=== PATIENT | female | born 1995 | race Caucasian/White ===

== ENCOUNTER 2017-10-02 00:24 | Emergency (ER) | payer SELFPAY ==
[2017-10-02 00:31] VITALS: BP 111/72; BMI 22.4
[2017-10-02 01:03] LABS: BILIRUBIN,URINE NEGATIVE (NEGATIVE); BLOOD/HEMOGLOBIN,URINE NEGATIVE (NEGATIVE); GLUCOSE, URINE NEGATIVE (NEGATIVE); KETONES,URINE NEGATIVE (NEGATIVE); LEUKOCYTE ESTERASE ,URINE 1+ (NEGATIVE); NITRITES,URINE NEGATIVE (NEGATIVE); PROTEIN,URINE 1+ (NEGATIVE); UROBILINOGEN,URINE 1+ (NORMAL)
--- NOTE | 2017-10-02 01:08 | DR.GENAD ---
HPI - PCP Primary Care Physician: NFD - Complaint/Symptoms Chief Complaint Doctors Comments: Patient presents with complaint of back pain x 3 days; denies any heavy lifting, denies dysuria or fever. LMP 08/09/17. Negative past medical history. She denies vaginal bleeding or cramping Chief Complaint:: PT STATES" I JUST FOUND OUT I WAS AND I'M HAVING ABD AND BACK PAIN" DENIES ANY BLEEDING - Source History Provided: Patient - Mode of Arrival Mode of Arrival: Ambulatory - Timing Onset of Chief Complaint: 10/01/17 PMH - PMH Past Medical History: No Past Surgical History: No - Family History History of Family Medical Conditions: Yes Family Medical History: Diabetes Mellitus, Hypertension Family Medical History Comment: SEIZURES - Social History Does patient currently use any type of tobacco product: No Have you used tobacco products in the last 12 months: No Type of Tobacco Use: None Does any household member use tobacco: No Alcohol Use: Rarely Do you use any recreational Drugs:: No Lives With: Family Lives Where: Home - infectious screening In the last 2 months have you had wt loss of >10#?: NO Have you had fever, night sweats or hemotysis?: No Have you traveled outside the country in the last 6 months?: No Isolation: Standard ROS - Review of Systems Eyes: No Symptoms Reported ENTM: No Symptoms Reported Respiratoy: No Symptoms Reported Cardiovascular: No Symptoms Reported Gastrointestinal/Abdominal: No Symptoms Reported Genitourinary: No Symptoms Reported Neurological: No Symptoms Reported Musculoskeletal: No Symptoms Reported Integumentary: No Symptoms Reported Hematologic/Lymphatic: No Symptoms Reported Endocrine: No Symptoms Reported Psychiatric: No Symptoms Reported All Other Systems: Reviewed and Negative PE - Vital Signs Vitals: Temperature 98 F Pulse Rate 88 Respiratory Rate 18 Blood Pressure 111/72 O2 Sat by Pulse Oximetry 100 - General General Appearance: Alert, In No Apparent Distress - Head Head Exam: Normal Inspection, Atraumatic - Eyes Eye exam: Normal Appearance, PERRL, EOMI - ENT ENT Exam: Normal Exam External Ear Exam: Normal External Inspection TM/Canal Exam: Bilateral Normal Nose Exam: Normal Nose Exam Mouth Exam: Normal Inspection Throat Exam: Normal Inspection - Neck Neck Exam: Normal Inspection, Full ROM - Chest Chest Inspection: Normal Inspection - Respiratory Respiratory Exam: Normal Lung Sounds Bilat Respiratory Exam: Bilateral Clear to Auscultation - Cardiovascular Cardiovascular Exam: Regular Rate, Normal Rhythm - Abdominal Exam Abdominal Exam: Normal Inspection, Normal Bowel Sounds Abdominal Tenderness: Suprapubic. negative: RUQ, RLQ, LUQ, LLQ, Epigastrium, Diffuse, Mild, Moderate, Severe, Other - Extremities Extremities Exam: Normal Inspection, Full ROM - Back Back Exam: Normal Inspection, Paraspinal Tenderness - Neurologic Neurological Exam: Alert, Oriented X3, CN II-XII Intact - Psychiatric Psychiatric Exam: Normal Affect - Skin Skin Exam: Warm, Dry, Intact Course - Reevaluation 1st: Unchanged ROR - Labs Reviewed Laboratory Results Reviewed?: Yes (low potassium) Result Diagrams: 10/02/17 00:55 10/02/17 00:55 Laboratory: WBC 8.3 X10^3/uL (3.6-10.0) 10/02/17 00:55 RBC 4.36 X10^6/uL (3.5-5.4) 10/02/17 00:55 Hgb 13.6 g/dL (12.0-16.0) 10/02/17 00:55 Hct 39.1 % (36.0-47.0) 10/02/17 00:55 MCV 89.6 fL (80.0-100.0) 10/02/17 00:55 MCH 31.1 pg (27.0-34.0) 10/02/17 00:55 MCHC 34.8 g/dL (33.0-35.0) 10/02/17 00:55 RDW 12.4 % (11.6-16.5) 10/02/17 00:55 Plt Count 213 X10^3/uL (150.0-450.0) 10/02/17 00:55 MPV 10.9 fL (7.4-11.0) 10/02/17 00:55 Neut % 65.6 % (42.0-75.0) 10/02/17 00:55 Lymph % 22.0 % (21.0-51.0) 10/02/17 00:55 [place] % 8.9 % (0.0-13.0) 10/02/17 00:55 Eos % 2.6 % (0.9-2.9) 10/02/17 00:55 Baso % 0.9 % (0.2-1.0) 10/02/17 00:55 Neut # 5.4 x10^3/uL (2.2-4.8) H 10/02/17 00:55 Lymph # 1.8 X10^3/uL (1.3-2.9) 10/02/17 00:55 [place] # 0.7 x10^3/uL (0.3-0.8) 10/02/17 00:55 Eos # 0.2 x10^3/uL (0.0-0.2) 10/02/17 00:55 Baso # 0.1 X10^3/uL (0.0-0.1) 10/02/17 00:55 Absolute Nucleated RBC 0.0 /100WBC 10/02/17 00:55 Sodium 138 mmol/L (136-145) 10/02/17 00:55 Corrected Sodium TNP 10/02/17 00:55 Potassium 3.3 mmol/L (3.5-5.1) L 10/02/17 00:55 Chloride 101 mmol/L (98-107) 10/02/17 00:55 Carbon Dioxide 29.6 mmol/L (21-32) 10/02/17 00:55 BUN 15 mg/dL (7-18) 10/02/17 00:55 Creatinine 0.58 mg/dL (0.55-1.02) 10/02/17 00:55 Est GFR (MDRD) Af Amer > 60 (>60) 10/02/17 00:55 Est GFR (MDRD) Non-Af > 60 (>60) 10/02/17 00:55 Glucose 92 mg/dL (65-99) 10/02/17 00:55 Calcium 9.3 mg/dL (8.5-10.1) 10/02/17 00:55 HCG, Qual Positive >10 mIU/mL 10/02/17 00:55 Specimen Type Clean catch urine 10/02/17 00:48 Urine Color Yellow (YELLOW) 10/02/17 00:48 Urine Appearance Clear (CLEAR) 10/02/17 00:48 Urine pH 6.0 (5.0 - 8.0) 10/02/17 00:48 Ur Specific [place] 1.025 (1.000-1.030) 10/02/17 00:48 Urine Protein 1+ (NEGATIVE) 10/02/17 00:48 Urine Glucose (UA) Negative (NEGATIVE) 10/02/17 00:48 Urine Ketones Negative (NEGATIVE) 10/02/17 00:48 Urine Occult Blood Negative (NEGATIVE) 10/02/17 00:48 Urine Nitrite Negative (NEGATIVE) 10/02/17 00:48 Urine Bilirubin Negative (NEGATIVE) 10/02/17 00:48 Urine Urobilinogen 1+ (NORMAL) 10/02/17 00:48 Ur Leukocyte Esterase 1+ (NEGATIVE) 10/02/17 00:48 Urine RBC None seen /HPF (NEGATIVE) 10/02/17 00:48 Urine WBC 0-3 /HPF (NEGATIVE) 10/02/17 00:48 Ur Squamous Epith Cells Moderate /HPF (NEGATIVE) 10/02/17 00:48 Urine Bacteria Trace /HPF (NEGATIVE) 10/02/17 00:48 Ur Culture Indicated? No/not indicated 10/02/17 00:48 - Diagnosis Discharge Problem: Hypokalemia Qualifiers: Weeks of gestation: less than 8 weeks Qualified Code(s): Z3A.01 - Less than 8 weeks gestation of - Discharge Plan Condition: Stable - Follow ups/Referrals Follow ups/Referrals: NFD,None [Primary Care Provider] - 3 days - Instructions
[2017-10-02 01:15] LABS: APPEARANCE,URINE CLEAR (CLEAR); BACTERIA,URINE TRACE /HPF (NEGATIVE); COLOR,URINE YELLOW (YELLOW); RBC,URINE NONE SEEN /HPF (NEGATIVE); SQUAMOUS EPITHELIAL CELL,UR MODERATE /HPF (NEGATIVE)
[2017-10-02 01:22] LABS: BLOOD UREA NITROGEN 15 mg/dL (7-18); CALCIUM 9.3 mg/dL (8.5-10.1); CARBON DIOXIDE 29.6 mmol/L (21-32); CHLORIDE 101 mmol/L (98-107); CREATININE 0.58 mg/dL (0.55-1.02); SODIUM 138 mmol/L (136-145); eGFR BLACK RACES > 60 (>60); eGFR NON BLACK RACES > 60 (>60)
[2017-10-02 01:23] LABS: BASOPHILS # (AUTO) 0.1 X10^3/uL (0.0-0.1); BASOPHILS % (AUTO) 0.9 % (0.2-1.0); EOSINOPHILS # (AUTO) 0.2 x10^3/uL (0.0-0.2); EOSINOPHILS % (AUTO) 2.6 % (0.9-2.9); HEMATOCRIT 39.1 % (36.0-47.0); HEMOGLOBIN 13.6 g/dL (12.0-16.0); LYMPHOCYTES # (AUTO) 1.8 X10^3/uL (1.3-2.9); MEAN CORPUSCULAR HEMOGLOBIN 31.1 pg (27.0-34.0); MEAN CORPUSCULAR HGB CONC 34.8 g/dL (33.0-35.0); MEAN CORPUSCULAR VOLUME 89.6 fL (80.0-100.0); MEAN PLATELET VOLUME 10.9 fL (7.4-11.0); MONOCYTES # (AUTO) 0.7 x10^3/uL (0.3-0.8); MONOCYTES % (AUTO) 8.9 % (0.0-13.0); NEUTROPHILS # (AUTO) 5.4 x10^3/uL (2.2-4.8); NEUTROPHILS % (AUTO) 65.6 % (42.0-75.0); PLATELET COUNT 213 X10^3/uL (150.0-450.0); RED BLOOD COUNT 4.36 X10^6/uL (3.5-5.4); RED CELL DISTRIBUTION WIDTH 12.4 % (11.6-16.5); WHITE BLOOD COUNT 8.3 X10^3/uL (3.6-10.0)
[2017-10-02 01:24] LABS: SERUM PREGNANCY TEST, QUAL POSITIVE >10 mIU/mL
[2017-10-02] MEDS ORDERED: K-LYTE EFFERVESCENT PO STA (01:32)
[2017-10-02] MEDS ORDERED: K-LYTE EFFERVESCENT ONE (01:37)
== END 2017-10-02 01:48 | disposition home or self-care (01) ==
LOC: ER 00:24
DX: M54.89 Other dorsalgia (principal); Z3A.01 Less than 8 weeks gestation of pregnancy
CPT/HCPCS: 36415; 80048; 81001; 84703; 85025; 99282